=== PATIENT | male | born 1990 | race Caucasian/White ===

== ENCOUNTER 2018-04-15 11:48 | Emergency (ER) | payer OTHER ==
[~2018-04-15] VITALS: Ht 175.3 cm; Wt 108.9 kg
[2018-04-15 12:29] VITALS: BP 147/88
[2018-04-15] MEDS ORDERED: TETANUS-DIPTH-ACEL PERTUSSIS 0.5ML SYRG IM ONE (17:00)
== END 2018-04-15 17:41 | disposition home or self-care (01) ==
LOC: ER 11:56
DX: S80.01XA Contusion of right knee, initial encounter (principal); V48.0XXA Car driver injured in noncollision transport accident in nontraffic accident, initial encounter; Y93.89 Activity, other specified; Y99.8 Other external cause status; Y92.89 Other specified places as the place of occurrence of the external cause
CPT/HCPCS: 73562; 90471; 90715